=== PATIENT | male | born 1995 | race Caucasian/White ===

== ENCOUNTER 2021-06-01 19:03 | Emergency (ER) | payer MEDICAID ==
[2021-06-01] MEDS ORDERED: Ondansetron 4 MG/2 ML SDV IVPUSH ONE (19:28)
[2021-06-01] MEDS ORDERED: Alum Hydrox/Mag Hydrox/Simeth 30 ML, Lidocaine 2% 15 ML PO ONE ×2 (19:28)
[2021-06-01] MEDS ORDERED: Lactated Ringers 1,000 ML IV ONE (19:28)
== END 2021-06-01 20:59 | disposition home or self-care (01) ==
LOC: JD.ED 19:03
DX: R19.7 Diarrhea, unspecified (principal); R11.10 Vomiting, unspecified
CPT/HCPCS: 36415; 80053; 83690; 85025; 87635; 96374; 99284; A9270; J2405; J7120; U0002